=== PATIENT | female | born 1950 | race Caucasian/White ===

== ENCOUNTER 2018-11-21 04:34 | Emergency (ER) | payer BC ==
[2018-11-21] MEDS ORDERED: Metoprolol Tartrate IV* 1 MG/ML 5 ML VIAL IV ONE (04:44)
--- NOTE | 2018-11-21 04:50 | ED ---
Palpitations / Dysrhythmia - HPI Summary HPI Summary: This patient is a 68 year old F brought in by EMS with a chief complaint of heart palpitations since just [employer]. She was given Nitro, Zofran, and Aspirin en route. Patient reports acid reflux. Patient denies pain or SOB. The patient went to bed at 23:00 and she was awoken with the palpitations. She states that her palpitations, due to LVH and murmur, do not normally seem like this. The patient did not have any caffeine last night, but she had some wine with dinner. The patient states she can feel a pulsing sensation in her abdomen. The patient is from [place] and visiting friends in the area. She last saw her PCP 10 months ago. Her HR is normally 80bpm, but elevated to 120 in the ED. PMHX LVH, murmur. SHX lives in [place], EtOH use. RX none. Vitals in the room : HR 120bpm BP 145/90. - History of Current Complaint Chief Complaint: EDChestPainROMI Time Seen by Provider: 11/21/18 04:37 Hx Obtained From: Patient Onset/Duration: Sudden Onset Character: Pounding - Allergy/Home Medications Allergies/Adverse Reactions: Allergies Allergy/AdvReac Type Severity Reaction Status Date / Time atropine Allergy Nausea And Verified 11/21/18 04:40 Vomiting codeine Allergy Nausea And Verified 11/21/18 04:40 Vomiting meperidine [From Demerol] Allergy Nausea And Verified 11/21/18 04:40 Vomiting Home Medications: Home Medications NK [No Home Medications Reported] 11/21/18 [History Confirmed 11/21/18] PMH/Surg Hx/FS Hx/Imm Hx Cardiovascular History: Reports: Other Cardiovascular Problems/Disorders - LVH, murmur Sensory History: Denies: Hx Deafness Infectious Disease History: No Infectious Disease History: Denies: Traveled Outside the [place] in Last 30 Days - Family History Known Family History: Positive: Cardiac Disease - Social History Alcohol Use: Weekly Substance Use Type: Reports: None Smoking Status (MU): Former Smoker Review of Systems ENT: Other - reflux Positive: Palpitations Negative: Shortness Of Breath Negative: Myalgia All Other Systems Reviewed And Are Negative: Yes Physical Exam - Summary Physical Exam Summary: VITAL SIGNS: Reviewed. GENERAL: Patient is a well-developed and nourished female who is lying comfortable in the stretcher. Patient is not in any acute respiratory distress. HEAD AND FACE: No signs of trauma. No ecchymosis, hematomas or skull depressions. No sinus tenderness. EYES: PERRLA, EOMI x 2, No injected conjunctiva, no nystagmus. EARS: Hearing grossly intact. Ear canals and tympanic membranes are within normal limits. MOUTH: Oropharynx within normal limits. NECK: Supple, trachea is midline, no adenopathy, no JVD, no carotid bruit, no c- spine tenderness, neck with full ROM. CHEST: Symmetric, no tenderness at palpation LUNGS: Clear to auscultation bilaterally. No wheezing or crackles. CVS: Mild regular tachycardia, S1 and S2 present, no murmurs or gallops appreciated. ABDOMEN: Soft, non-tender. No signs of distention. No rebound no guarding, and no masses palpated. Bowel sounds are normal. EXTREMITIES: FROM in all major joints, no edema, no cyanosis or clubbing. NEURO: Alert and oriented x 3. No acute neurological deficits. Speech is normal and follows commands. SKIN: Dry and warm GCS: 15 Triage Information Reviewed: Yes Vital Signs On Initial Exam: Initial Vitals Temp Pulse Resp BP Pulse Ox 98.5 F 120 20 145/90 95 11/21/18 04:36 11/21/18 04:36 11/21/18 04:36 11/21/18 04:36 11/21/18 04:36 Vital Signs Reviewed: Yes Diagnostics - Vital Signs Vital Signs Temp Pulse Resp BP Pulse Ox 11/21/18 04:36 98.5 F 120 20 145/90 95 - Laboratory Result Diagrams: 11/21/18 05:10 11/21/18 05:10 Lab Statement: Any lab studies that have been ordered have been reviewed, and results considered in the medical decision making process. - EKG 04:46 Cardiac Rate: Tachycardia - 105 bpm EKG Rhythm: Sinus Tachycardia Summary of EKG Findings: Diffuse mild ST depressions. 05:15 Cardiac Rate: NL - 84 bpm EKG Rhythm: Sinus Rhythm Summary of EKG Findings: Following Lopressor 5mg IV push, P waves, QRS complex, and T waves are within normal limits, T waves and intervals are normal, no ischemic changes. Prior ST depression has resolved. Course/Dx - Course Course Of Treatment: This patient is a 68 year old F brought in by EMS with a chief complaint of heart palpitations since just [employer]. She was given Nitro, Zofran, and Aspirin en route. Patient reports acid reflux. Patient denies pain or SOB. The patient went to bed at 23:00 and she was awoken with the palpitations. An EKG reveals sinus tachycardia 105 bpm, diffuse mild ST depressions. Second EKG, following Lopressor 5mg IV push, reveals NSR 84 bpm, P waves, QRS complex, and T waves are within normal limits, T waves and intervals are normal, no ischemic changes. Prior ST depression has resolved. ED physician has reviewed this radiology report. Test results with no significant abnormalities. She was found to be dehydrated and was given 1L of IV fluids. In the ED course the patient was given Metoprolol and IV fluids. Patient will be discharged with follow up from [facility] physician referral. The patient is agreeable with this plan. - Diagnoses Provider Diagnoses: Tachycardia, Palpitations Discharge - Sign-Out/Discharge Documenting (check all that apply): Patient Departure - discharge Patient Received Moderate/Deep Sedation with Procedure: No - Discharge Plan Condition: Stable Disposition: HOME Patient Education Materials: Heart Palpitations (ED), Tachycardia (ED) Referrals: [facility] PHYSICIAN REFERRAL [Outside] - 1 Day Additional Instructions: Follow up with your primary care physician tomorrow. RETURN TO THE EMERGENCY DEPARTMENT FOR CHANGING OR WORSENING SYMPTOMS - Attestation Statements Document Initiated by Scribe: Yes Documenting Scribe: Jerel Spencer Provider For Whom [facility] is Documenting (Include Credential): Lisa Horton MD Scribe Attestation: Jerel Schuster, scribed for Lisa Horton MD on 11/21/18 at 0621. Status of Scribe Document: Ready
[2018-11-21 05:21] LABS: ABS Basophils 0 10^3/ul (0-0.2); ABS Eosinophils 0.2 10^3/ul (0-0.6); ABS Lymphocytes 1.8 10^3/ul (1.0-4.8); ABS Monocytes 0.6 10^3/ul (0-0.8); ABS Neutrophils 3.5 10^3/ul (1.5-7.7); ABS Nucleated RBC 0 10^3/ul; Eosinophil % 3.1 %; Hematocrit 40 % (35-47); Hemoglobin 13.4 g/dl (12.0-16.0); Lymphocyte % 29.2 %; Mean Corpuscular HGB Conc 34 g/dl (31-36); Mean Corpuscular Hemoglobin 29 pg (27-31); Mean Corpuscular Volume 87 fL (80-97); Nucleated Red Blood Cells % 0; Platelet Count 348 10^3/ul (150-450); Red Blood Count 4.59 10^6/ul (4.00-5.40); Red Cell Distribution Width 13 % (10.5-15)
[2018-11-21 05:31] LABS: Activated Partial Thrombo Time 28.4 seconds (26.0-36.3); INR 0.81 (0.77-1.02)
[2018-11-21 05:39] LABS: Albumin 4.3 g/dL (3.2-5.2); Albumin/Globulin Ratio 2.2 (1-3); BUN/Creatinine Ratio 32.9 (8-20); Calcium 9.2 mg/dL (8.6-10.3); EGFR African American 100.4 (>60); Magnesium 2.1 mg/dL (1.9-2.7); Total Bilirubin 0.4 mg/dL (0.2-1.0); Total Protein 6.3 g/dL (6.4-8.9)
[2018-11-21] MEDS ORDERED: NS 0.9% 1000 ML** 1,000 ML IV ONE (05:44)
[2018-11-21 06:03] LABS: Potassium 3.9 mmol/L (3.5-5.0)
[2018-11-21 06:17] LABS: TSH (Thyroid Stimulating Horm) 3.49 mcIU/mL (0.34-5.60)
[2018-11-21 06:52] VITALS: BP 139/82
== END 2018-11-21 06:52 | disposition home or self-care (01) ==
LOC: ED 04:34
DX: R00.0 Tachycardia, unspecified (principal); R00.2 Palpitations; Z87.891 Personal history of nicotine dependence
CPT/HCPCS: 36415; 80053; 83735; 83880; 84443; 84484; 85025; 85379; 85610; 85730; 93005; 96374; 99283; J3490